=== PATIENT | male | born 2000 | race Asian ===

== ENCOUNTER 2023-05-22 05:23 | Emergency (ER) | payer BC, OTHER ==
[2023-05-22 05:39] VITALS: TEMP 98.6; BMI 25.0
[2023-05-22] MEDS ORDERED: ACETAMINOPHEN INJECTION 100 ML IVPB ONE (05:59)
[2023-05-22] MEDS: ACETAMINOPHEN 1000 MG/100 ML BAG IVPB ONE (06:11)
[2023-05-22 06:16] LABS: BASO % 0.2 % (0-2.0); EOS % 0.9 % (0-4.5); HEMOGLOBIN 16.9 GM/dL (11.7-16.9); LYMPH % 5.1 % (8-40); MCH 30.3 pg (25.7-33.7); MCHC 35.1 g/dl (32.0-35.9); MEAN CELL VOLUME 86.3 fl (80-96); MEAN PLT VOLUME 7.7 fl (7.5-11.1); MONO % 4.9 % (3.8-10.2); NEUT % 88.9 % (42.8-82.8); PLATELET COUNT 259 10^3/uL (134-434); RBC 5.56 M/mm3 (4.00-5.60); RDW 12.8 % (11.9-15.9); WHITE BLOOD COUNT 10.4 K/mm3 (4.0-10.0)
[2023-05-22 06:34] LABS: INR 1.17 (0.83-1.09); PROTHROMBIN TIME (PATIENT) 13.5 SEC (9.7-13.0)
[2023-05-22 06:36] LABS: ACTIVATED PTT 35.5 SECONDS (25.2-36.5)
[2023-05-22 06:40] LABS: POTASSIUM 4.3 mmol/L (3.5-5.1)
[2023-05-22 06:42] LABS: BLOOD UREA NITROGEN 16.4 mg/dL (7-18); CALCIUM 9.7 mg/dL (8.5-10.1)
[2023-05-22 06:43] LABS: ALBUMIN 4.2 g/dl (3.4-5.0)
[2023-05-22 06:46] LABS: CREATININE 1.2 mg/dL (0.55-1.3)
[2023-05-22 06:47] LABS: BILIRUBIN,TOTAL 1.9 mg/dL (0.2-1); TOT PROT 7.6 g/dl (6.4-8.2)
[2023-05-22 07:09] VITALS: BP 131/90; PULSE 108; RESP 18
== END 2023-05-22 07:42 | disposition home or self-care (01) ==
LOC: JER 05:23
PROC: 3E033NZ Introduction of Analgesics, Hypnotics, Sedatives into Peripheral Vein, Percutaneous Approach (ICD-10-PCS; principal; 2023-05-22)
DX: R07.89 Other chest pain (principal); R00.2 Palpitations; R00.0 Tachycardia, unspecified; Z20.822 Contact with and (suspected) exposure to COVID-19
CPT/HCPCS: 0241U-QW; 36415; 71046-TC-FY; 80053; 84484; 85025; 85379; 85610; 85730; 93005; 93010; 99285-25; J0131